=== PATIENT | female | born 1990 ===

== ENCOUNTER 2021-03-21 20:37 | Inpatient (IN) | payer OTHER ==
[2021-03-21] MEDS ORDERED: IBUPROFEN800 MG PO (21:57)
[2021-03-21] MEDS ORDERED: TYLENOL EXTRA500 MG PO (21:57)
[2021-03-21] MEDS ORDERED: DOCUSATE SODIU100 MG PO (21:57)
[2021-03-21 23:23] LABS: BUN/CREATININE RATIO 19 (0-10)
[2021-03-21 23:47] LABS: HEMOGLOBIN 12.6 gm/dl (12.3-15.3); RED BLOOD COUNT 3.79 M/UL (4.00-5.10); WHITE BLOOD COUNT 12.2 K/UL (4.5-11.0)
== END 2021-03-23 14:02 | disposition home or self-care (01) | DRG 807 ==
LOC: GENOP 20:37 → OB 21:00
PROVIDERS: ADMIT Obstetrics & Gynecology
PROC: 10907ZC Drainage of Amniotic Fluid, Therapeutic from Products of Conception, Via Natural or Artificial Opening (ICD-10-PCS; principal; 2021-03-21)
PROC: 10E0XZZ Delivery of Products of Conception, External Approach (ICD-10-PCS; 2021-03-21)
PROC: 0KQM0ZZ Repair Perineum Muscle, Open Approach (ICD-10-PCS; 2021-03-21)
PROC: 4A1HX4Z Monitoring of Products of Conception, Cardiac Electrical Activity, External Approach (ICD-10-PCS; 2021-03-21)
DX: O34.211 Maternal care for low transverse scar from previous cesarean delivery (principal); Z37.0 Single live birth; N85.8 Other specified noninflammatory disorders of uterus; Z3A.39 39 weeks gestation of pregnancy; O70.1 Second degree perineal laceration during delivery; O99.824 Streptococcus B carrier state complicating childbirth; Z20.822 Contact with and (suspected) exposure to COVID-19
CPT/HCPCS: 59025; 80053; 82570; 82800; 83615; 84156; 84550; 85014; 85018; 85025; 90715; J0360; U0002